=== PATIENT | male | born 1940 | race Caucasian/White ===

== ENCOUNTER 2022-02-01 15:05 | Inpatient (IN) ==
[2022-02-01] MEDS ORDERED: methylPREDNISolone 125 MG/2 ML VIAL IVP ONE (15:13)
[2022-02-01] MEDS ORDERED: Ipratropium/Albuterol Neb 3 ML IH ONE (15:13)
[2022-02-01] MEDS ORDERED: 0.9 % Sodium Chloride 1,000 ML IVC ONE (15:13)
[2022-02-01] MEDS ORDERED: Iopamidol - 370 500 ML MLS IVP ONE (15:42)
[2022-02-01 16:09] LABS: Immature Granulocytes % 0.6 % (0-4); Nucleated Red Blood Cells 1.2 /100 WBC (0)
[2022-02-01 16:10] LABS: Basophils % 0.1 %; Eosinophils # 0.1 K/mcL (0.0-0.6); Eosinophils % 1.2 %; Hematocrit 29.7 % (37.5-50.1); Hemoglobin 8.3 g/dL (12.9-16.9); Lymphocytes # 0.8 K/mcL (0.6-4.6); Lymphocytes % 11.4 %; Mean Corpuscular HGB Conc 27.9 g/dL (31.6-35.5); Mean Corpuscular Hemoglobin 18.3 pg (28.0-33.3); Mean Corpuscular Volume 65.6 fL (83.0-100.0); Mean Platelet Volume 10.1 fL (9.4-12.4); Monocytes # 0.5 K/mcL (0.0-1.3); Monocytes % 7.6 %; Neutrophils # 5.3 K/mcL (1.6-8.9); Platelet Count 316 K/mcL (140-400); Red Blood Count 4.53 M/mcL (4.19-5.50); Red Cell Distribution Width 18.8 % (11.5-14.5); Segmented Neutrophils % 79.1 %; White Blood Count 6.7 K/mcL (4.3-11.1)
[2022-02-01 16:12] LABS: VBG HCO3 29 mEq/L (21-27); VBG PCO2 51 mmHg (41-51); VBG PH 7.37 pH Units (7.32-7.42); VBG PO2 55 mmHg (25-50)
[2022-02-01 16:25] LABS: Hypochromasia Present (Not Present)
[2022-02-01 16:26] LABS: Anisocytosis 1+ (Not Present); Microcytosis Present (Not Present); Platelet Estimate Normal (Normal); Poikilocytosis 1+ (Not Present); Target Cells 1+ (Not Present)
[2022-02-01 16:33] LABS: Alanine Aminotransferase 18 Units/L (7-52); Albumin 3.7 g/dL (3.5-5.7); Albumin/Globulin Ratio 1.2 (1.1-2.2); Alkaline Phosphatase 62 Units/L (34-104); Aspartate Amino Transferase 20 Units/L (13-39); BUN/Creatinine Ratio 22 (6-26); Bilirubin,Direct 0.3 mg/dL (0.0-0.2); Bilirubin,Indirect 0.5 mg/dL (0.0-1.0); Bilirubin,Total 0.8 mg/dL (0.3-1.0); Blood Urea Nitrogen 20 mg/dL (8-23); Calcium 8.7 mg/dL (8.6-10.3); Carbon Dioxide 31 mEq/L (23-29); Chloride 98 mEq/L (98-107); Glucose 127 mg/dL (70-105); Osmolality,Calculated 292 (280-300); Potassium 2.7 mEq/L (3.5-5.1); Sodium 139 mEq/L (136-145); Total Protein 6.7 g/dL (6.4-8.9); eGFR For African Americans > 60 (> 60); eGFR For Non-African Americans > 60 (> 60)
[2022-02-01 16:36] LABS: Troponin I 0.05 ng/mL (< 0.04)
[2022-02-01 16:57] LABS: Influenza A PCR Negative (Negative); Influenza B PCR Negative (Negative); Resp. Syncytial Virus PCR Negative (Negative)
[2022-02-01 16:58] LABS: SARS-CoV-2 by PCR (In House) Positive (Negative)
[2022-02-01] MEDS ORDERED: Potassium Chloride Elixir 20 MEQ/15 ML UDC PO ONE (16:58)
[2022-02-01] MEDS ORDERED: Azithromycin 250 MG TABLET PO ONE (17:10)
[2022-02-01] MEDS ORDERED: Naloxone 0.4 MG/ML INJ IVP PRN (18:50)
[2022-02-01] MEDS ORDERED: Ondansetron 4 MG/2 ML VIAL IVP PRN (18:50)
[2022-02-01] MEDS ORDERED: 0.9 % Sodium Chloride 1,000 ML IVC SCH (19:00)
[2022-02-01] MEDS ORDERED: *HR* Metoprolol 5 MG/5 ML VIAL IVP PRN (20:34)
[2022-02-01] MEDS ORDERED: cefTRIAXone 1,000 MG in 0.9 % Sodium Chloride 10 ML IVP SCH (21:00)
[2022-02-01] MEDS: *HR* Enoxaparin 40 MG/0.4 ML SYRINGE SQ SCH (21:04)
[2022-02-01] MEDS ORDERED: Remdesivir 200 MG in 0.9 % Sodium Chloride 100 ML IVPB ONE (23:00)
[2022-02-02 02:32] LABS: Hematocrit 24.8 % (37.5-50.1); Hemoglobin 7.2 g/dL (12.9-16.9); Immature Granulocytes % 0.6 % (0-4); Lymphocytes # 0.3 K/mcL (0.6-4.6); Lymphocytes % 9.5 %; Mean Corpuscular Volume 65.6 fL (83.0-100.0); Mean Platelet Volume 10.4 fL (9.4-12.4); Monocytes # 0.1 K/mcL (0.0-1.3); Monocytes % 2.1 %; Nucleated Red Blood Cells 1.2 /100 WBC (0); Platelet Count 268 K/mcL (140-400); Red Blood Count 3.78 M/mcL (4.19-5.50); Red Cell Distribution Width 18.6 % (11.5-14.5); Segmented Neutrophils % 87.8 %; White Blood Count 3.4 K/mcL (4.3-11.1)
[2022-02-02 02:52] LABS: Alanine Aminotransferase 15 Units/L (7-52); Albumin 3.3 g/dL (3.5-5.7); Albumin/Globulin Ratio 1.1 (1.1-2.2); Alkaline Phosphatase 57 Units/L (34-104); Aspartate Amino Transferase 16 Units/L (13-39); BUN/Creatinine Ratio 25 (6-26); Bilirubin,Direct 0.2 mg/dL (0.0-0.2); Bilirubin,Indirect 0.4 mg/dL (0.0-1.0); Bilirubin,Total 0.6 mg/dL (0.3-1.0); Blood Urea Nitrogen 19 mg/dL (8-23); C-Reactive Protein 49 mg/L (Less than 10); Calcium 8.2 mg/dL (8.6-10.3); Carbon Dioxide 31 mEq/L (23-29); Chloride 100 mEq/L (98-107); Globulin 2.9 g/dL (2.4-3.5); Glucose 166 mg/dL (70-105); Osmolality,Calculated 296 (280-300); Potassium 3.1 mEq/L (3.5-5.1); Sodium 140 mEq/L (136-145); Total Protein 6.2 g/dL (6.4-8.9); eGFR For African Americans > 60 (> 60); eGFR For Non-African Americans > 60 (> 60)
[2022-02-02 02:56] LABS: Anisocytosis 2+ (Not Present); Microcytosis Present (Not Present); Platelet Estimate Normal (Normal); Poikilocytosis 1+ (Not Present); Target Cells 1+ (Not Present)
[2022-02-02 09:00] VITALS: O2SAT 94
[2022-02-02] MEDS ORDERED: Pantoprazole 40 MG VIAL IVP SCH (09:00)
[2022-02-02] MEDS: *HR* Enoxaparin 40 MG/0.4 ML SYRINGE SQ SCH (09:23)
[2022-02-02] MEDS ORDERED: Perflutren Lipid Microsphere 1.3 ML in 0.9 % Sodium Chloride 8.7 ML IVP PRN (09:53)
[2022-02-02] MEDS ORDERED: Furosemide 20 MG/2 ML VIAL IVP ONE (09:56)
[2022-02-02] MEDS ORDERED: Azithromycin 250 MG TABLET PO SCH (10:15)
[2022-02-02 11:16] VITALS: BP 124/78; PULSE 88; TEMP 97.8
[2022-02-02] MEDS ORDERED: Remdesivir 100 MG in 0.9 % Sodium Chloride 100 ML IVPB SCH (23:00)
== END 2022-02-02 12:59 | disposition left against medical advice (07) | DRG 177 ==
LOC: 3ANU 15:05 → EMEROOARM 15:05 → 3ANU 18:54
PROVIDERS: ADMIT Student in an Organized Health Care Education/Training Program; ATTEND Student in an Organized Health Care Education/Training Program